=== PATIENT | female | born 1955 | race Caucasian/White ===

== ENCOUNTER 2017-10-22 13:23 | Emergency (ER) | payer OTHER ==
[~2017-10-22] VITALS: Ht 162.6 cm; Wt 47.0 kg
[2017-10-22] MEDS ORDERED: ondansetron/PF 4mg/2ml inj IV STA (14:18)
[2017-10-22] MEDS ORDERED: normal saline 1000ml 1,000 ML IV ONE (14:20)
[2017-10-22 14:30] LABS: BASOPHILS % (AUTO) 0.4 % (0-1); EOSINOPHILS # (AUTO) 0.2 X10'3 (0-0.9); EOSINOPHILS % (AUTO) 3.7 % (0-6); LYMPHOCYTES # (AUTO) 1.8 X10'3 (1.1-4.8); LYMPHOCYTES % (AUTO) 29.1 % (21-51); MEAN CORPUSCULAR HEMOGLOBIN 31.1 PG (27.0-31.0); MEAN CORPUSCULAR HGB CONC 35.1 % (33.0-36.5); MEAN CORPUSCULAR VOLUME 88.8 FL (78-98); MEAN PLATELET VOLUME 6.9 FL (7.4-10.4); MONOCYTES # (AUTO) 0.8 X10'3 (0-0.9); MONOCYTES % (AUTO) 12.5 % (2-12); NEUTROPHILS # (AUTO) 3.4 X10'3 (1.8-7.7); NEUTROPHILS % (AUTO) 54.3 % (42-75); PLATELET COUNT 359 X10'3 (140-440); RED BLOOD COUNT 4.51 X10'6 (4.20-5.60); RED CELL DISTRIBUTION WIDTH 13.5 % (11.5-14.5); WHITE BLOOD COUNT 6.2 X10'3 (4.5-11.0)
[2017-10-22 14:52] LABS: ALANINE AMINOTRANSFERASE 73 U/L (12-78); ALBUMIN 3.5 G/DL (3.4-5.0); ALBUMIN/GLOBULIN RATIO 0.9 (1.1-1.5); ALKALINE PHOSPHATASE 65 IU/L (46-116); ANION GAP 8 (8-16); ASPARTATE AMINO TRANSFERASE 39 U/L (10-37); BILIRUBIN,TOTAL 1.2 MG/DL (0.1-1.0); BLOOD UREA NITROGEN 12 MG/DL (7-18); BUN/CREATININE RATIO 18.2 (6.6-38.0); CALCIUM 8.6 MG/DL (8.5-10.1); CHLORIDE 105 MMOL/L (99-107); CREATININE 0.66 MG/DL (0.40-0.90); GLUCOSE 106 MG/DL (70-104); POTASSIUM 3.6 MMOL/L (3.5-5.1); SODIUM 143 MMOL/L (135-145); TOTAL CARBON DIOXIDE 30.4 MMOL/L (24-32); TOTAL PROTEIN 7.3 G/DL (6.4-8.2); eGFR > 90 ML/MIN
[2017-10-22] MEDS ORDERED: ibuprofen 200mg tablet PO STA (14:59)
[2017-10-22] MEDS ORDERED: acetaminophen 325mg tablet PO STA (14:59)
[2017-10-22] MEDS ORDERED: normal saline 1000ml 1,000 ML IV STA (14:59)
[2017-10-22] MEDS ORDERED: ONDA4TAB9 SL (15:45)
[2017-10-22 16:02] VITALS: BP 128/65
== END 2017-10-22 16:03 | disposition home or self-care (01) ==
LOC: ER 13:24
DX: A08.4 Viral intestinal infection, unspecified (principal); I10 Essential (primary) hypertension; J45.909 Unspecified asthma, uncomplicated; Z86.73 Personal history of transient ischemic attack (TIA), and cerebral infarction without residual deficits
CPT/HCPCS: 36415; 80053; 85025; 96361; 96374; 99285; J2405; J7030

== ENCOUNTER 2024-06-12 13:17 | Outpatient (CLI) | payer MEDICARE | END 2024-06-12 23:59 | disposition home or self-care (01) | LOC: MRI02 13:17 | PROVIDERS: ATTEND Pediatrics Sports Medicine | DX: M19.071 Primary osteoarthritis, right ankle and foot (principal); M20.11 Hallux valgus (acquired), right foot; M25.571 Pain in right ankle and joints of right foot; M79.671 Pain in right foot | CPT/HCPCS: 73718; 73721 ==

== ENCOUNTER 2024-12-14 10:03 | Outpatient (CLI) | payer MEDICARE ==
--- NOTE | 2024-12-14 11:52 | RADIOLOGY REPORT ---
CLINICAL HISTORY: Injury of unspecified nerve at lower leg level, unspecified leg. TECHNIQUE: Multi sequence multi planar MRI images of the right midfoot and forefoot were obtained wi thout IV contrast. COMPARISON: MR MRI LOWER EXTREMITY RIGHT on DOS: 06/12/24, MR MRI LOWER EXTREMITY RIGHT on DOS: 06/12 FINDINGS: No acute fracture. Moderate arthritic changes of the cuneonavicular joint and at the 2nd t hrough 4th tarsometatarsal joints with associated joint space narrowing areas of mild subchondral lois ma, most prominent of the proximal aspect of the lateral cuneiform. Mild patchy marrow edema of the t ibial sesamoid of the 1st metatarsal, possible sesamoiditis in the appropriate clinical setting. Ther e is a T2 hyperintense structure along the plantar aspect of the forefoot near the 2nd intermetatarsa l space measuring up to 4.5 mm in greatest dimension, likely ganglion cyst. Visualized tendons appear intact. Unremarkable appearance of the intrinsic musculature of the forefoot and midfoot. Lisfranc l igament complex appears intact. IMPRESSION: 1. No evidence of acute bony abnormality. 2. Likely ganglion cyst along the plantar aspect of the forefoot near the 2nd intermetatarsal space. 3. 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 4. Possible sesamoiditis of the tibial sesamoid of the 1st metatarsal.
== END 2024-12-14 23:59 | disposition home or self-care (01) ==
LOC: MRI02 10:03
PROVIDERS: ATTEND Podiatrist Foot & Ankle Surgery
DX: S84.90XA Injury of unspecified nerve at lower leg level, unspecified leg, initial encounter (principal); L90.5 Scar conditions and fibrosis of skin; M19.071 Primary osteoarthritis, right ankle and foot; X58.XXXA Exposure to other specified factors, initial encounter; Y93.89 Activity, other specified; Y92.89 Other specified places as the place of occurrence of the external cause; Y99.8 Other external cause status
CPT/HCPCS: 73718